=== PATIENT | male | born 1995 | race American Indian/Alaskan Native ===

== ENCOUNTER 2017-11-11 20:00 | Emergency (ER) | payer BC, MEDICAID ==
[2017-11-11 20:21] VITALS: BP 148/77
[2017-11-11] MEDS ORDERED: MOTRIN PO ONE (20:25)
--- NOTE | 2017-11-11 21:41 | XRay Report ---
FINAL REPORT PROCEDURE: XR KNEE 3V RT TECHNIQUE: RIGHT knee radiographs, AP, lateral and oblique views. CPT 06653 HISTORY: Right knee pain COMPARISON: No prior studies are available for comparison. FINDINGS: Fracture (s) and/or Dislocation(s): None . Alignment: Normal . Joint space(s): Normal . Soft tissues: Normal . Bone mineralization: Normal . Foreign bodies: None . IMPRESSION: Normal Examination.
--- NOTE | 2017-11-11 22:26 | Emergency Department Report ---
ED Lower Extremity HPI - General Chief Complaint: Extremity Injury, Lower Stated Complaint: RT LEG PAIN Time Seen by Provider: 11/11/17 22:03 Source: patient Mode of arrival: Ambulatory Limitations: No Limitations - History of Present Illness Initial Comments: This is a 22-year-old male nontoxic, well nourished in appearance, no acute signs of distress presents to the ED with c/o of right knee pain 1 day. Patient stated that he was playing basketball and twisted his knee. Patient denies any other trauma. Patient denies any numbness, tingling, fever, chills, nausea, vomiting, chest pain, shortness of breath, headache, stiff neck. Patient denies any joint swelling or joint redness. Patient denies decreased range of motion. Patient stated has decreased gait due to pain. Patient denies any allergies or significant past medical history. MD Complaint: knee injury -: days(s) (1) Place: street/outdoors Severity: mild Severity scale (0 -10): 8 Improves With: immobilization Worsens With: movement, palpation Associated Symptoms: swelling, able to partially bear weight, ambulatory. denies: snap/pop sensation, numbness, tingling, unable to bear weight - Related Data Previous Rx's Medication Instructions Recorded Last Taken Type Amoxicillin [Trimox CAP] 500 mg PO Q8H #30 capsule 03/22/13 Unknown Rx Ibuprofen [Motrin] 800 mg PO TID PRN #15 tablet 03/22/13 Unknown Rx Ibuprofen [Motrin] 800 mg PO Q8H PRN #60 tablet 10/09/14 Unknown Rx traMADol [Ultram] 50 mg PO Q6HR PRN #20 tablet 10/09/14 Unknown Rx Amoxicillin [Trimox CAP] 500 mg PO Q8H #30 capsule 01/21/15 Unknown Rx Ibuprofen [Motrin] 600 mg PO Q8H PRN #30 tablet 11/11/17 Unknown Rx Allergies Allergy/AdvReac Type Severity Reaction Status Date / Time No Known Allergies Allergy Verified 03/22/13 18:25 ED Review of Systems ROS: Stated complaint: RT LEG PAIN Other details as noted in HPI Constitutional: denies: chills, fever Eyes: denies: eye pain, eye discharge, vision change ENT: denies: ear pain, throat pain Respiratory: denies: cough, shortness of breath, wheezing Cardiovascular: denies: chest pain, palpitations Endocrine: no symptoms reported Gastrointestinal: denies: abdominal pain, nausea, diarrhea Genitourinary: denies: urgency, dysuria Musculoskeletal: denies: back pain, joint swelling, arthralgia Skin: denies: rash, lesions Neurological: denies: headache, weakness, paresthesias Psychiatric: denies: anxiety, depression Hematological/Lymphatic: denies: easy bleeding, easy bruising ED Past Medical Hx - Past Medical History Additional medical history: Oral herpes - Surgical History Past Surgical History?: No - Social History Smoking Status: Never Smoker Substance Use Type: None - Medications Home Medications: Home Medications Medication Instructions Recorded Confirmed Last Taken Type Amoxicillin [Trimox CAP] 500 mg PO Q8H #30 capsule 03/22/13 Unknown Rx Ibuprofen [Motrin] 800 mg PO TID PRN #15 tablet 03/22/13 Unknown Rx Ibuprofen [Motrin] 800 mg PO Q8H PRN #60 tablet 10/09/14 Unknown Rx traMADol [Ultram] 50 mg PO Q6HR PRN #20 tablet 10/09/14 Unknown Rx Amoxicillin [Trimox CAP] 500 mg PO Q8H #30 capsule 01/21/15 Unknown Rx Ibuprofen [Motrin] 600 mg PO Q8H PRN #30 tablet 11/11/17 Unknown Rx ED Physical Exam - General Limitations: No Limitations General appearance: alert, in no apparent distress - Head Head exam: Present: atraumatic, normocephalic - Eye Eye exam: Present: normal appearance - ENT ENT exam: Present: mucous membranes moist - Neck Neck exam: Present: normal inspection - Respiratory Respiratory exam: Present: normal lung sounds bilaterally. Absent: respiratory distress - Cardiovascular Cardiovascular Exam: Present: regular rate, normal rhythm. Absent: systolic murmur, diastolic murmur, rubs, gallop - GI/Abdominal GI/Abdominal exam: Present: soft, normal bowel sounds - Rectal Rectal exam: Present: deferred - Extremities Exam Extremities exam: Present: normal inspection, full ROM, tenderness, normal capillary refill. Absent: joint swelling - Expanded Lower Extremity Exam Right Hip exam: Present: normal inspection, full ROM. Absent: tenderness, swelling Upper Leg exam: Present: normal inspection, full ROM. Absent: tenderness, swelling Knee exam: Present: normal inspection, full ROM, tenderness, swelling, full knee extension. Absent: abrasion, laceration, ecchymosis, deformity, crepidus, dislocation, erythema, effusion, pain w/ pronation/supination, posterior draw sign, pain/laxity with valgus, pain/laxity with varus Lower Leg exam: Present: normal inspection, full ROM. Absent: tenderness, swelling Ankle exam: Present: normal inspection, full ROM. Absent: tenderness, swelling Foot/Toe exam: Present: normal inspection, full ROM. Absent: tenderness, swelling Neuro vascular tendon exam: Present: no vascular compromise. Absent: pulse deficit, abnormal cap refill, motor deficit, sensory deficit, tendon deficit, extremity cold to touch, pallor, abnormal 2-point discrimination, decreased fine /light touch, foot drop, peroneal nerve deficit, significant pain with passive ROM of distal joint Gait: Positive: observed and limited by pain - Back Exam Back exam: Present: normal inspection, full ROM - Neurological Exam Neurological exam: Present: alert, oriented X3, normal gait - Psychiatric Psychiatric exam: Present: normal affect, normal mood - Skin Skin exam: Present: warm, dry, intact, normal color. Absent: rash ED Course Vital Signs 11/11/17 11/11/17 20:02 20:19 Temperature 98.2 F 98.2 F Pulse Rate 67 67 Respiratory 16 16 Rate Blood Pressure 148/77 148/77 O2 Sat by Pulse 98 100 Oximetry - Reevaluation(s) Reevaluation #1: 11/11/17 22:28 Patient is speaking in full sentences with no signs of distress noted. ED Lower Extremity MDM - Medical Decision Making This is a 22-year-old male that presents with left knee strain. Patient is stable and was examined by me. I referred patient to an orthopedic doctor for further evaluation for possible MRI. X-ray has been obtained and dictated by the radiologist. Patient is notified of the x-ray report with noted by the patient. Patient does have normal gait with no tenderness and no joint swelling. No ecchymosis. no joint redness or swelling. Not warm to touch. No signs of cellulites present. Patient received a knee immobilize. Patient was instructed to RICE therapy. Patient received Motrin for pain. Patient is discharged with Motrin. At time of discharge, the patient does not seem toxic or ill in appearance. No acute signs of distress noted. Patient agrees to discharge treatment plan of care. No further questions noted by the patient. Critical care attestation.: If time is entered above; I have spent that time in minutes in the direct care of this critically ill patient, excluding procedure time. ED Disposition Clinical Impression: Strain of right knee Qualifiers: Encounter type: initial encounter Qualified Code(s): S86.911A - Strain of unspecified muscle(s) and tendon(s) at lower leg level, right leg, initial encounter Disposition: TO HOME OR SELFCARE Is pt being admited?: No Does the pt Need Aspirin: No Condition: Stable Instructions: Knee Pain (ED), Knee Immobilizer (ED), RICE Therapy (ED) Additional Instructions: Follow-up with a orthopedic doctor in 3-5 days or if symptoms worsen and continue return to emergency room as soon as possible. Prescriptions: Ibuprofen [Motrin] 600 mg PO Q8H PRN #30 tablet PRN Reason: Pain Referrals: PRIMARY CAREMD [Primary Care Provider] - 3-5 Days PARAM HWANG MD [Staff Physician] - 3-5 Days [facility] [Outside] - 3-5 Days [facility] [Outside] - 3-5 Days Forms: Work/School Release Form(ED)
== END 2017-11-11 23:00 | disposition home or self-care (01) ==
LOC: ED 20:00
DX: S86.911A Strain of unspecified muscle(s) and tendon(s) at lower leg level, right leg, initial encounter (principal); X50.1XXA Overexertion from prolonged static or awkward postures, initial encounter; Y93.67 Activity, basketball; Y92.488 Other paved roadways as the place of occurrence of the external cause; Y99.8 Other external cause status
CPT/HCPCS: 99283

== ENCOUNTER 2018-06-13 18:17 | Emergency (ER) | payer BC ==
--- NOTE | 2018-06-13 18:32 | Emergency Department Report ---
Chief Complaint: Extremity Injury, Lower Stated Complaint: LFT FT PAIN Time Seen by Provider: 06/13/18 18:31 - HPI History of Present Illness: L FOOT PAIN- ON ARCH FOR 1.5 WEEKS NO TRAUMA NSAIDS NOT WORKING PMH NONE PSH NONE RX NONE MSE COMPLETED MSE screening note: Focused history and physical exam performed. Due to findings the following was ordered: ED Disposition for MSE Condition: Stable
--- NOTE | 2018-06-13 20:22 | XRay Report ---
FINAL REPORT EXAM: XR FOOT 2V LT HISTORY: L FOOT PAIN; NO KNOWN INJURY TECHNIQUE: Frontal and lateral views left foot Comparison: None FINDINGS: There is no evidence of fracture, subluxation, lytic or blastic change or periosteal reaction. The joint spaces are maintained. The soft tissues are unremarkable. IMPRESSION: 1. No plain film evidence of bony or soft tissue abnormality.
--- NOTE | 2018-06-14 00:06 | Emergency Department Report ---
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 plantar region past 3 days denies fall injury or trauma states he works tenderness she was standing and walks to and from work 1+ miles each way symptoms include pain with flexion to plantar foot described as burning aching 5/10 is no numbness and tingling in pain is exacerbated by prolonged standing and walking and is relieved by offloading rest patient has not taken [id number] NSAIDs for pain MD Complaint: foot injury Onset/Timin -: days(s) Injury: Foot: Left Type of Injury: hyperextension Place: home Severity: moderate Severity scale (0 -10): 5 Improves With: nothing (nothing tried ), rest Worsens With: weight bearing, movement, palpation Context: other ([place] ) Associated Symptoms: snap/pop sensation, able to partially bear weight - Related Data Previous Rx's Medication Instructions Recorded Last Taken Type Amoxicillin [Trimox CAP] 500 mg PO Q8H #30 capsule 03/22/13 Unknown Rx Ibuprofen [Motrin] 800 mg PO TID PRN #15 tablet 03/22/13 Unknown Rx Ibuprofen [Motrin] 800 mg PO Q8H PRN #60 tablet 10/09/14 Unknown Rx traMADol [Ultram] 50 mg PO Q6HR PRN #20 tablet 10/09/14 Unknown Rx Amoxicillin [Trimox CAP] 500 mg PO Q8H #30 capsule 01/21/15 Unknown Rx Ibuprofen [Motrin] 600 mg PO Q8H PRN #30 tablet 11/11/17 Unknown Rx Butalb/Acetamin/Caff 50-325-40 2 tab PO BID PRN #30 tablet 04/03/18 Unknown Rx [Fioricet] Cyclobenzaprine [Flexeril] 10 mg PO TID PRN #30 tablet 06/14/18 Unknown Rx Naproxen 500 mg PO BID PRN #30 tablet 06/14/18 Unknown Rx predniSONE [Deltasone] 40 mg PO QDAY 5 Days #10 tab 06/14/18 Unknown Rx Allergies Allergy/AdvReac Type Severity Reaction Status Date / Time No Known Allergies Allergy Verified 06/13/18 18:18 ED Review of Systems ROS: Stated complaint: LFT FT PAIN Other details as noted in HPI Constitutional: denies: chills, fever Eyes: denies: eye pain, eye discharge, vision change ENT: denies: ear pain, throat pain Respiratory: denies: cough, shortness of breath, wheezing Cardiovascular: denies: chest pain, palpitations Endocrine: no symptoms reported Gastrointestinal: denies: abdominal pain, nausea, diarrhea Genitourinary: denies: urgency, dysuria Musculoskeletal: other (foot pain ) Skin: denies: rash, lesions Neurological: denies: headache, weakness, paresthesias Psychiatric: denies: anxiety, depression Hematological/Lymphatic: denies: easy bleeding, easy bruising ED Past Medical Hx - Past Medical History Previous Medical History?: No Additional medical history: Oral herpes - Surgical History Past Surgical History?: No - Social History Smoking Status: Never Smoker - Medications Home Medications: Home Medications Medication Instructions Recorded Confirmed Last Taken Type Amoxicillin [Trimox CAP] 500 mg PO Q8H #30 capsule 03/22/13 Unknown Rx Ibuprofen [Motrin] 800 mg PO TID PRN #15 tablet 03/22/13 Unknown Rx Ibuprofen [Motrin] 800 mg PO Q8H PRN #60 tablet 10/09/14 Unknown Rx traMADol [Ultram] 50 mg PO Q6HR PRN #20 tablet 10/09/14 Unknown Rx Amoxicillin [Trimox CAP] 500 mg PO Q8H #30 capsule 01/21/15 Unknown Rx Ibuprofen [Motrin] 600 mg PO Q8H PRN #30 tablet 11/11/17 Unknown Rx Butalb/Acetamin/Caff 50-325-40 2 tab PO BID PRN #30 tablet 04/03/18 Unknown Rx [Fioricet] Cyclobenzaprine [Flexeril] 10 mg PO TID PRN #30 tablet 06/14/18 Unknown Rx Naproxen 500 mg PO BID PRN #30 tablet 06/14/18 Unknown Rx predniSONE [Deltasone] 40 mg PO QDAY 5 Days #10 tab 06/14/18 Unknown Rx ED Physical Exam - General Limitations: No Limitations General appearance: alert, in no apparent distress - Head Head exam: Present: atraumatic, normocephalic - Eye Eye exam: Present: normal appearance, EOMI - ENT ENT exam: Present: mucous membranes moist - Neck Neck exam: Present: normal inspection, full ROM. Absent: tenderness - Respiratory Respiratory exam: Present: normal lung sounds bilaterally. Absent: respiratory distress, stridor, chest wall tenderness - Cardiovascular Cardiovascular Exam: Present: regular rate, normal rhythm, normal heart sounds. Absent: systolic murmur, diastolic murmur, rubs, gallop - GI/Abdominal GI/Abdominal exam: Present: soft, normal bowel sounds - Rectal Rectal exam: Present: deferred - Extremities Exam Extremities exam: Present: full ROM, tenderness (planta foot), normal capillary refill. 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 Absent: swelling, abrasion, laceration, ecchymosis, deformity, crepidus, dislocation, erythema, amputation, puncture wound, foreign body, tenderness at base of 5th metatarsal, nail avulsion, subungual hematoma Neuro vascular tendon exam: Absent: motor deficit, sensory deficit, tendon defi cit, foot drop Gait: Positive: observed and limited by pain - Back Exam Back exam: Present: normal inspection, full ROM. Absent: tenderness, CVA tenderness (R), CVA tenderness (L) - Neurological Exam Neurological exam: Present: alert, oriented X3, CN II-XII intact, normal gait, reflexes normal. Absent: motor sensory deficit - Psychiatric Psychiatric exam: Present: normal affect, normal mood - Skin Skin exam: Present: warm, dry, intact, normal color. Absent: rash ED Course Vital Signs 06/13/18 18:31 Temperature 97.8 F Pulse Rate 68 Respiratory 18 Rate Blood Pressure 153/71 O2 Sat by Pulse 98 Oximetry ED Lower Extremity MDM - Radiology Data Radiology results: report reviewed, image reviewed FINAL REPORT EXAM: XR FOOT 2V LT HISTORY: L FOOT PAIN; NO KNOWN INJURY TECHNIQUE: Frontal and lateral views left foot Comparison: None FINDINGS: There is no evidence of fracture, subluxation, lytic or blastic change or periosteal reaction. The joint spaces are maintained. The soft tissues are unremarkable. IMPRESSION: 1. No plain film evidence of bony or soft tissue abnormality. Transcribed By: ED Dictated By: MERLIN OLIVEIRA MD Electronically Authenticated By: MERLIN OLIVEIRA MD Signed Date/Time: 06/13/182021 DD/ 20 TD/TT: 06/13/182020 - Medical Decision Making this is mild plantar fasciatis, xray no fracutre no soft tissue abnormality pt is ambulatory, plan lita wrap, nsaids, short burst steriod, RICE therapy, foot exercises follow up with pcp in 2-3 days pt verbalized agreement and understanding of discharge plan. pt dc'd to home in stable condition at this time. Critical care attestation.: If time is entered above; I have spent that time in minutes in the direct care of this critically ill patient, excluding procedure time. ED Disposition Clinical Impression: Plantar fasciitis of left foot Disposition: DC-01 TO HOME OR SELFCARE Is pt being admited?: No Does the pt Need Aspirin: No Condition: Stable Instructions: Plantar Fasciitis (ED) Prescriptions: Cyclobenzaprine [Flexeril] 10 mg PO TID PRN #30 tablet PRN Reason: Muscle Spasm Naproxen 500 mg PO BID PRN #30 tablet PRN Reason: pain predniSONE [Deltasone] 40 mg PO QDAY 5 Days #10 tab Referrals: BETH REYES [Primary Care Provider] - 3-5 Days [facility] [Outside] - 3-5 Days Forms: Work/School Release Form(ED) Time of Disposition: 00:18
[2018-06-14 00:33] VITALS: BP 143/78
== END 2018-06-14 00:33 | disposition home or self-care (01) ==
LOC: ED 18:17
DX: M72.2 Plantar fascial fibromatosis (principal)
CPT/HCPCS: 99283

== ENCOUNTER 2018-12-30 21:33 | Emergency (ER) | payer SELFPAY ==
[2018-12-30 22:14] VITALS: BP 140/86
--- NOTE | 2018-12-30 22:14 | Event Note ---
ED Screening Note Date of service: 12/30/18 Time: 22:13 ED Screening Note: 23 y o male presents with right foot pinky pain after injury todayunsure of what hit toe This initial assessment/diagnostic orders/clinical plan/treatment(s) is/are subject to change based on patients health status, clinical progression and re- assessment by fellow clinical providers in the ED. Further treatment and workup at subsequent clinical providers discretion. Patient/guardian urged not to elope from the ED as their condition may be serious if not clinically assessed and managed. Initial orders include: xr r foot
== END 2018-12-31 02:30 | disposition left against medical advice (07) ==
LOC: ED 21:33
DX: M79.671 Pain in right foot (principal); Z53.21 Procedure and treatment not carried out due to patient leaving prior to being seen by health care provider

== ENCOUNTER 2019-05-28 22:57 | Emergency (ER) | payer SELFPAY ==
[2019-05-28 23:18] VITALS: BP 155/88
[2019-05-29] MEDS ORDERED: BENZONATATE 100 MG CAP PO ONE (03:24)
--- NOTE | 2019-05-29 03:25 | Emergency Department Report ---
ED General Adult HPI - General Chief complaint: Upper Respiratory Infection Stated complaint: COLD SX/CP Time Seen by Provider: 05/29/19 03:09 Source: patient Mode of arrival: Ambulatory Limitations: No Limitations - History of Present Illness Initial comments: 24-year-old -Iranian male patient without significant past medical history presents with complaints of cough, congestion, runny nose, sneezing, and chest pain x 5 days. Patient states he was seen at [facility] on Saturday and diagnosed with a viral respiratory infection. He states cough is nonproductive and denies any fever. Patient also denies any shortness of breath or hemoptysis. Patient states the chest pain occurs mainly with coughing and is worse on the right side. He states ibuprofen is not helping with his pain. He denies any history of asthma. He also states he was given a shot of Decadron at [facility] and his symptoms did not improve with this. He reports his symptoms have been worsening since their onset. -: Sudden Quality: stabbing, other (burning) Consistency: constant - Related Data Previous Rx's Medication Instructions Recorded Last Taken Type Amoxicillin [Trimox CAP] 500 mg PO Q8H #30 capsule 03/22/13 Unknown Rx Ibuprofen [Motrin] 800 mg PO TID PRN #15 tablet 03/22/13 Unknown Rx Ibuprofen [Motrin] 800 mg PO Q8H PRN #60 tablet 10/09/14 Unknown Rx traMADoL [Ultram] 50 mg PO Q6HR PRN #20 tablet 10/09/14 Unknown Rx Amoxicillin [Trimox CAP] 500 mg PO Q8H #30 capsule 01/21/15 Unknown Rx Ibuprofen [Motrin] 600 mg PO Q8H PRN #30 tablet 11/11/17 Unknown Rx Butalb/Acetamin/Caff 50-325-40 2 tab PO BID PRN #30 tablet 04/03/18 Unknown Rx [Fioricet 50-325-40] Cyclobenzaprine [Flexeril] 10 mg PO TID PRN #30 tablet 06/14/18 Unknown Rx Naproxen 500 mg PO BID PRN #30 tablet 06/14/18 Unknown Rx predniSONE [Deltasone] 40 mg PO QDAY 5 Days #10 tab 06/14/18 Unknown Rx Amoxicillin/Potassium Clav 1 each PO BID 10 Days #20 tablet 05/29/19 Unknown Rx [Augmentin 875-125 Tablet] Benzonatate 200 mg PO TID PRN #30 capsule 05/29/19 Unknown Rx Allergies Allergy/AdvReac Type Severity Reaction Status Date / Time No Known Allergies Allergy Verified 06/13/18 18:18 ED Review of Systems ROS: Stated complaint: COLD SX/CP Other details as noted in HPI Constitutional: malaise. denies: chills, fever ENT: congestion. denies: throat pain, epistaxis Respiratory: cough. denies: shortness of breath, SOB with exertion, SOB at rest Cardiovascular: chest pain. denies: palpitations, edema, syncope Endocrine: denies: excessive sweating Gastrointestinal: denies: abdominal pain, nausea, vomiting, diarrhea Musculoskeletal: denies: back pain Skin: denies: rash, lesions Neurological: denies: headache ED Past Medical Hx - Past Medical History Previous Medical History?: Yes Additional medical history: Oral herpes - Surgical History Past Surgical History?: No - Social History Smoking Status: Never Smoker Substance Use Type: None - Medications Home Medications: Home Medications Medication Instructions Recorded Confirmed Last Taken Type Amoxicillin [Trimox CAP] 500 mg PO Q8H #30 capsule 03/22/13 Unknown Rx Ibuprofen [Motrin] 800 mg PO TID PRN #15 tablet 03/22/13 Unknown Rx Ibuprofen [Motrin] 800 mg PO Q8H PRN #60 tablet 10/09/14 Unknown Rx traMADoL [Ultram] 50 mg PO Q6HR PRN #20 tablet 10/09/14 Unknown Rx Amoxicillin [Trimox CAP] 500 mg PO Q8H #30 capsule 01/21/15 Unknown Rx Ibuprofen [Motrin] 600 mg PO Q8H PRN #30 tablet 11/11/17 Unknown Rx Butalb/Acetamin/Caff 50-325-40 2 tab PO BID PRN #30 tablet 04/03/18 Unknown Rx [Fioricet 50-325-40] Cyclobenzaprine [Flexeril] 10 mg PO TID PRN #30 tablet 06/14/18 Unknown Rx Naproxen 500 mg PO BID PRN #30 tablet 06/14/18 Unknown Rx predniSONE [Deltasone] 40 mg PO QDAY 5 Days #10 tab 06/14/18 Unknown Rx Amoxicillin/Potassium Clav 1 each PO BID 10 Days #20 tablet 05/29/19 Unknown Rx [Augmentin 875-125 Tablet] Benzonatate 200 mg PO TID PRN #30 capsule 05/29/19 Unknown Rx ED Physical Exam - General Limitations: No Limitations General appearance: alert, in no apparent distress - Head Head exam: Present: atraumatic, normocephalic - Eye Eye exam: Present: normal appearance - ENT ENT exam: Present: mucous membranes moist - Neck Neck exam: Present: normal inspection - Respiratory Respiratory exam: Present: rhonchi, chest wall tenderness (right sided). Absent: respiratory distress - Cardiovascular Cardiovascular Exam: Present: regular rate, normal rhythm. Absent: systolic murmur, diastolic murmur, rubs, gallop - Extremities Exam Extremities exam: Present: normal inspection - Back Exam Back exam: Present: normal inspection - Neurological Exam Neurological exam: Present: alert, oriented X3 - Psychiatric Psychiatric exam: Present: normal affect, normal mood - Skin Skin exam: Present: warm, dry, intact, normal color. Absent: rash ED Course Vital Signs 05/28/19 23:17 Temperature 98.9 F Pulse Rate 69 Respiratory 22 Rate Blood Pressure 155/88 O2 Sat by Pulse 98 Oximetry ED Medical Decision Making - Radiology Data Radiology results: report reviewed CHEST 2 VIEWS INDICATION / CLINICAL INFORMATION: cough, right sided chest pain. COMPARISON: None available. FINDINGS: SUPPORT DEVICES: None. HEART / MEDIASTINUM: No significant abnormality. LUNGS / PLEURA: No significant pulmonary or pleural abnormality. .No pneumothorax. ADDITIONAL FINDINGS: No significant additional findings. IMPRESSION: 1. No acute findings. - Medical Decision Making 24-year-old -Iranian male patient without significant past medical history presents with complaints of cough, congestion, runny nose, sneezing, and chest pain x 3 days. Patient is afebrile and nontoxic tachycardic. Chest x-ray is negative for acute findings. Mild rhonchi noted on exam. Patient is nontoxic appearing and stable for discharge home. Will treat for lower respiratory tract infection. Recommend follow-up with primary care provider within 3-5 days. Discussed very strict return precautions in detail with patient verbalizes understanding. Critical care attestation.: If time is entered above; I have spent that time in minutes in the direct care of this critically ill patient, excluding procedure time. ED Disposition Clinical Impression: Lower resp. tract infection Disposition: - TO HOME OR SELFCARE Is pt being admited?: No Condition: Stable Instructions: Acute Bronchitis (ED) Prescriptions: Amoxicillin/Potassium Clav [Augmentin 875-125 Tablet] 1 each PO BID 10 Days #20 tablet Benzonatate 200 mg PO TID PRN #30 capsule PRN Reason: Cough Referrals: PRIMARY CARE,MD [Primary Care Provider] - 3-5 Days
--- NOTE | 2019-05-29 03:51 | XRay Report ---
CHEST 2 VIEWS INDICATION / CLINICAL INFORMATION: cough, right sided chest pain. COMPARISON: None available. FINDINGS: SUPPORT DEVICES: None. HEART / MEDIASTINUM: No significant abnormality. LUNGS / PLEURA: No significant pulmonary or pleural abnormality. .No pneumothorax. ADDITIONAL FINDINGS: No significant additional findings. IMPRESSION: 1. No acute findings. Signer Name: Jose Ramon Pearson MD Signed: 05/29/2019 3:47 AM Workstation Name: [id number]
== END 2019-05-29 04:58 | disposition home or self-care (01) ==
LOC: ED 22:57
DX: J22 Unspecified acute lower respiratory infection (principal); Z79.899 Other long term (current) drug therapy
CPT/HCPCS: 71046

== ENCOUNTER 2019-06-03 15:32 | Emergency (ER) | payer SELFPAY ==
[2019-06-03] MEDS ORDERED: IBUPROFEN 600 MG TAB PO ONE (16:38)
[2019-06-03 16:39] VITALS: BP 160/69
--- NOTE | 2019-06-03 16:41 | Emergency Department Report ---
Chief Complaint: Upper Respiratory Infection Stated Complaint: CHEST PAINS.LORI Time Seen by Provider: 06/03/19 16:40 - HPI History of Present Illness: 24 y/o male low risk by wells no pe dvt risk factors perc negative p/w cough chest wall pain reproducible xr chest ekg minor care Vital Signs 06/03/19 16:38 Temperature 98.2 F Pulse Rate 61 Respiratory 18 Rate Blood Pressure 160/69 O2 Sat by Pulse 98 Oximetry - Exam Vital Signs: Vital Signs 06/03/19 16:38 Temperature 98.2 F Pulse Rate 61 Respiratory 18 Rate Blood Pressure 160/69 O2 Sat by Pulse 98 Oximetry MSE screening note: Focused history and physical exam performed. Due to findings the following was ordered: ED Disposition for MSE Condition: Stable
--- NOTE | 2019-06-03 18:36 | XRay Report ---
CHEST 2 VIEWS INDICATION / CLINICAL INFORMATION: Cough and chest wall pain.. COMPARISON: 05/29/2019. FINDINGS: SUPPORT DEVICES: None. HEART / MEDIASTINUM: The heart size and pulmonary vasculature are normal. LUNGS / PLEURA: No significant pulmonary or pleural abnormality. No pneumothorax. ADDITIONAL FINDINGS: No osseous abnormality is identified. IMPRESSION: No acute abnormality or significant change. Signer Name: Taye Figueroa MD Signed: 06/03/2019 6:31 PM Workstation Name: [id number]
--- NOTE | 2019-06-03 21:29 | Emergency Department Report ---
- General Chief Complaint: Upper Respiratory Infection Stated Complaint: CHEST PAINS.LORI Time Seen by Provider: 06/03/19 16:40 Source: patient Mode of arrival: Ambulatory Limitations: No Limitations - History of Present Illness Initial Comments: Pt is a 24 y/o male who presents for cough persistent x 1 month, hx of bronchitis , tx'd for same one month ago, pt is low risk by wells no pe dvt risk factors perc negative p/w, cough, chest wall pain, reproducible. symptoms rated at 5/10, symptoms relieved by albuterol inhaler, symptoms exacerbated by activity. MD Complaint: cough, sore throat, rhinorrhea, nasal congestion Onset/Timin -: month(s) Severity: moderate Severity scale (0 -10): 5 Quality: aching Consistency: intermittent Improves With: other (albuterol ) Worsens With: activity Context: sick contacts Associated Symptoms: rhinorrhea, nasal congestion, sore throat, cough, chest pain, ear pain. denies: fever, abdominal pain, nausea, vomiting, diarrhea, dysuria, rash, confusion, epistaxis Treatments Prior to Arrival: other (albuterol ) - Related Data Previous Rx's Medication Instructions Recorded Last Taken Type Amoxicillin [Trimox CAP] 500 mg PO Q8H #30 capsule 03/22/13 Unknown Rx Ibuprofen [Motrin] 800 mg PO TID PRN #15 tablet 03/22/13 Unknown Rx Ibuprofen [Motrin] 800 mg PO Q8H PRN #60 tablet 10/09/14 Unknown Rx traMADoL [Ultram] 50 mg PO Q6HR PRN #20 tablet 10/09/14 Unknown Rx Amoxicillin [Trimox CAP] 500 mg PO Q8H #30 capsule 01/21/15 Unknown Rx Ibuprofen [Motrin] 600 mg PO Q8H PRN #30 tablet 11/11/17 Unknown Rx Butalb/Acetamin/Caff 50-325-40 2 tab PO BID PRN #30 tablet 04/03/18 Unknown Rx [Fioricet 50-325-40] Cyclobenzaprine [Flexeril] 10 mg PO TID PRN #30 tablet 06/14/18 Unknown Rx Naproxen 500 mg PO BID PRN #30 tablet 06/14/18 Unknown Rx predniSONE [Deltasone] 40 mg PO QDAY 5 Days #10 tab 06/14/18 Unknown Rx Amoxicillin/Potassium Clav 1 each PO BID 10 Days #20 tablet 05/29/19 Unknown Rx [Augmentin 875-125 Tablet] Benzonatate 200 mg PO TID PRN #30 capsule 05/29/19 Unknown Rx Prednisone [predniSONE 5 mg (6-Day 5 mg PO .TAPER #1 tab.ds.pk 05/29/19 Unknown Rx Pack, 21 Tabs)] Albuterol INH(or & Nicu Only) 2 puff IH QID PRN #8.5 gram 06/03/19 Unknown Rx [ProAir HFA Inhaler] Guaifenesin/Pseudoephedrne HCl 1 each PO BID PRN #20 tab.er.12h 06/03/19 Unknown Rx [Mucinex D ER 1,200-120 mg Tab] Ibuprofen [Motrin 800 MG tab] 800 mg PO Q8HR PRN #30 tablet 06/03/19 Unknown Rx predniSONE [Deltasone] 40 mg PO QDAY #10 tab 06/03/19 Unknown Rx Allergies Allergy/AdvReac Type Severity Reaction Status Date / Time No Known Allergies Allergy Verified 06/13/18 18:18 ED Review of Systems ROS: Stated complaint: CHEST PAINS.LORI Other details as noted in HPI Constitutional: denies: chills, fever Eyes: denies: eye pain, eye discharge, vision change ENT: ear pain, throat pain, congestion. denies: dental pain Respiratory: cough. denies: shortness of breath, wheezing Cardiovascular: denies: chest pain, palpitations Endocrine: no symptoms reported Gastrointestinal: denies: abdominal pain, nausea, diarrhea Genitourinary: denies: urgency, dysuria Musculoskeletal: denies: back pain, joint swelling, arthralgia Skin: denies: rash, lesions Neurological: denies: headache, weakness, paresthesias Psychiatric: denies: anxiety, depression Hematological/Lymphatic: denies: easy bleeding, easy bruising ED Past Medical Hx - Past Medical History Previous Medical History?: Yes Additional medical history: Oral herpes - Surgical History Past Surgical History?: No - Social History Smoking Status: Never Smoker Substance Use Type: None - Medications Home Medications: Home Medications Medication Instructions Recorded Confirmed Last Taken Type Amoxicillin [Trimox CAP] 500 mg PO Q8H #30 capsule 03/22/13 Unknown Rx Ibuprofen [Motrin] 800 mg PO TID PRN #15 tablet 03/22/13 Unknown Rx Ibuprofen [Motrin] 800 mg PO Q8H PRN #60 tablet 10/09/14 Unknown Rx traMADoL [Ultram] 50 mg PO Q6HR PRN #20 tablet 10/09/14 Unknown Rx Amoxicillin [Trimox CAP] 500 mg PO Q8H #30 capsule 01/21/15 Unknown Rx Ibuprofen [Motrin] 600 mg PO Q8H PRN #30 tablet 11/11/17 Unknown Rx Butalb/Acetamin/Caff 50-325-40 2 tab PO BID PRN #30 tablet 04/03/18 Unknown Rx [Fioricet 50-325-40] Cyclobenzaprine [Flexeril] 10 mg PO TID PRN #30 tablet 06/14/18 Unknown Rx Naproxen 500 mg PO BID PRN #30 tablet 06/14/18 Unknown Rx predniSONE [Deltasone] 40 mg PO QDAY 5 Days #10 tab 06/14/18 Unknown Rx Amoxicillin/Potassium Clav 1 each PO BID 10 Days #20 tablet 05/29/19 Unknown Rx [Augmentin 875-125 Tablet] Benzonatate 200 mg PO TID PRN #30 capsule 05/29/19 Unknown Rx Prednisone [predniSONE 5 mg (6-Day 5 mg PO .TAPER #1 tab.ds.pk 05/29/19 Unknown Rx Pack, 21 Tabs)] Albuterol INH(or & Nicu Only) 2 puff IH QID PRN #8.5 gram 06/03/19 Unknown Rx [ProAir HFA Inhaler] Guaifenesin/Pseudoephedrne HCl 1 each PO BID PRN #20 tab.er.12h 06/03/19 Unknown Rx [Mucinex D ER 1,200-120 mg Tab] Ibuprofen [Motrin 800 MG tab] 800 mg PO Q8HR PRN #30 tablet 06/03/19 Unknown Rx predniSONE [Deltasone] 40 mg PO QDAY #10 tab 06/03/19 Unknown Rx ED Physical Exam - General Limitations: No Limitations General appearance: alert, in no apparent distress - Head Head exam: Present: atraumatic, normocephalic - Eye Eye exam: Present: PERRL, EOMI Pupils: Present: normal accommodation - ENT ENT exam: Present: mucous membranes moist, TM's normal bilaterally, normal external ear exam - Expanded ENT Exam Expanded Throat exam: Positive: tonsillar erythema, tonsillomegaly, tonsillar exudate, other (uvula midline no stridor, yellow clear post nasal drip ). Negative: R peritonsillar mass, L peritonsillar mass - Neck Neck exam: Present: normal inspection, full ROM. Absent: tenderness, lymphadenopathy, thyromegaly - Respiratory Respiratory exam: Present: normal lung sounds bilaterally, chest wall tenderness (right lateral anterior chest wall ). Absent: respiratory distress, wheezes, stridor - Cardiovascular Cardiovascular Exam: Present: regular rate, normal rhythm, normal heart sounds. Absent: systolic murmur, diastolic murmur, rubs, gallop - GI/Abdominal GI/Abdominal exam: Present: soft, normal bowel sounds. Absent: tenderness - Rectal Rectal exam: Present: deferred - Extremities Exam Extremities exam: Present: normal inspection - Back Exam Back exam: Present: normal inspection, full ROM. Absent: tenderness, CVA tenderness (R), CVA tenderness (L) - Neurological Exam Neurological exam: Present: alert, oriented X3, CN II-XII intact, normal gait - Psychiatric Psychiatric exam: Present: normal affect, normal mood - Skin Skin exam: Present: warm, dry, intact, normal color. Absent: rash ED Course Vital Signs 06/03/19 16:38 Temperature 98.2 F Pulse Rate 61 Respiratory 18 Rate Blood Pressure 160/69 O2 Sat by Pulse 98 Oximetry ED Medical Decision Making - Radiology Data Radiology results: report reviewed, image reviewed CHEST 2 VIEWS INDICATION / CLINICAL INFORMATION: Cough and chest wall pain.. COMPARISON: 05/29/2019. FINDINGS: SUPPORT DEVICES: None. HEART / MEDIASTINUM: The heart size and pulmonary vasculature are normal. LUNGS / PLEURA: No significant pulmonary or pleural abnormality. No pneumothorax. ADDITIONAL FINDINGS: No osseous abnormality is identified. IMPRESSION: No acute abnormality or significant change. Signer Name: Taye Figueroa MD Signed: 06/03/2019 6:31 PM Workstation Name: [id number] Transcribed By: RT Dictated By: Taye Figueroa MD Electronically Authenticated By: Taye Figueroa MD Signed Date/Time: 06/03/191830 DD/ 29 TD/TT: - Medical Decision Making This is bronchitis, with bacterial phraryngitis. plan: albuterol , predisone, mucinex, follow up with pcp in 2-3 days. Critical care attestation.: If time is entered above; I have spent that time in minutes in the direct care of this critically ill patient, excluding procedure time. ED Disposition Clinical Impression: Bronchitis Pharyngitis Qualifiers: Pharyngitis/tonsillitis etiology: unspecified etiology Qualified Code(s): J02.9 - Acute pharyngitis, unspecified Disposition: TO HOME OR SELFCARE Is pt being admited?: No Does the pt Need Aspirin: No Condition: Stable Instructions: Acute Bronchitis (ED) Prescriptions: predniSONE [Deltasone] 40 mg PO QDAY #10 tab Ibuprofen [Motrin 800 MG tab] 800 mg PO Q8HR PRN #30 tablet PRN Reason: pain fever Guaifenesin/Pseudoephedrne HCl [Mucinex D ER 1,200-120 mg Tab] 1 each PO BID PRN #20 tab.er.12h PRN Reason: cough congestion Albuterol INH(or & Nicu Only) [ProAir HFA Inhaler] 2 puff IH QID PRN #8.5 gram PRN Reason: Shortness Of Breath Referrals: RUTH ANN PALMER MD [Staff Physician] - 3-5 Days Forms: Work/School Release Form(ED) Time of Disposition: 21:39
== END 2019-06-03 21:34 | disposition home or self-care (01) ==
LOC: ED 15:32
DX: J40 Bronchitis, not specified as acute or chronic (principal); Z79.899 Other long term (current) drug therapy
CPT/HCPCS: 71046; 93005; 93010

== ENCOUNTER 2021-08-10 19:03 | Emergency (ER) | payer BC ==
[2021-08-10 19:54] VITALS: BP 150/80
--- NOTE | 2021-08-10 20:25 | XRay Report ---
CHEST 2 VIEWS INDICATION / CLINICAL INFORMATION: CHEST PAIN. COMPARISON: 2 views of the chest from 06/03/2019. FINDINGS: SUPPORT DEVICES: None. HEART / MEDIASTINUM: No significant abnormality. LUNGS / PLEURA: No significant pulmonary abnormality. No significant pleural effusion. No pneumothora x. ADDITIONAL FINDINGS: No significant additional findings. IMPRESSION: 1. No acute abnormality of the chest. Signer Name: Eladio Arredondo MD Signed: 08/10/2021 8:20 PM Workstation Name: [id number]
--- NOTE | 2021-08-11 00:31 | Emergency Department Report ---
ED General Adult HPI - General Chief complaint: Chest Pain Stated complaint: CHEST PAIN Time Seen by Provider: 08/10/21 23:35 Source: patient Mode of arrival: Ambulatory Limitations: No Limitations - History of Present Illness Initial comments: Patient is 26 years old male with no significant past medical history. Patient presented to the ER complaining of chest pain, substernal, sharp with no radiation. Patient stated that he noticed several tender area on his chest when he touches it. He stated that he has been working out recently. Patient denies any shortness of breath, fever, chills, cough. No abdominal pain, nausea or vomiting. -: days(s) (3) Location: chest Quality: sharp Associated Symptoms: denies other symptoms, chest pain - Related Data Previous Rx's Medication Instructions Recorded Last Taken Type Amoxicillin [Trimox CAP] 500 mg PO Q8H #30 capsule 03/22/13 Unknown Rx Ibuprofen [Motrin] 800 mg PO TID PRN #15 tablet 03/22/13 Unknown Rx Ibuprofen [Motrin] 800 mg PO Q8H PRN #60 tablet 10/09/14 Unknown Rx traMADoL [Ultram] 50 mg PO Q6HR PRN #20 tablet 10/09/14 Unknown Rx Amoxicillin [Trimox CAP] 500 mg PO Q8H #30 capsule 01/21/15 Unknown Rx Ibuprofen [Motrin] 600 mg PO Q8H PRN #30 tablet 11/11/17 Unknown Rx Butalb/Acetamin/Caff 50-325-40 2 tab PO BID PRN #30 tablet 04/03/18 Unknown Rx [Fioricet 50-325-40] Cyclobenzaprine [Flexeril] 10 mg PO TID PRN #30 tablet 06/14/18 Unknown Rx Naproxen 500 mg PO BID PRN #30 tablet 06/14/18 Unknown Rx predniSONE [Deltasone] 40 mg PO QDAY 5 Days #10 tab 06/14/18 Unknown Rx Amoxicillin/Potassium Clav 1 each PO BID 10 Days #20 tablet 05/29/19 Unknown Rx [Augmentin 875-125 Tablet] Benzonatate 200 mg PO TID PRN #30 capsule 05/29/19 Unknown Rx Prednisone [predniSONE 5 mg (6-Day 5 mg PO .TAPER #1 tab.ds.pk 05/29/19 Unknown Rx Pack, 21 Tabs)] Albuterol Mdi (or & Nicu Only) 2 puff IH QID PRN #8.5 gram 06/03/19 Unknown Rx [ProAir HFA Inhaler] Guaifenesin/Pseudoephedrne HCl 1 each PO BID PRN #20 tab.er.12h 06/03/19 Unknown Rx [Mucinex D ER 1,200-120 mg Tab] Ibuprofen [Motrin 800 MG tab] 800 mg PO Q8HR PRN #30 tablet 06/03/19 Unknown Rx predniSONE [Deltasone] 40 mg PO QDAY #10 tab 06/03/19 Unknown Rx Allergies Allergy/AdvReac Type Severity Reaction Status Date / Time No Known Allergies Allergy Verified 06/13/18 18:18 ED Review of Systems ROS: Stated complaint: CHEST PAIN Other details as noted in HPI Comment: All other systems reviewed and negative Constitutional: denies: chills, fever Respiratory: denies: cough, shortness of breath, SOB with exertion, SOB at rest Cardiovascular: chest pain Gastrointestinal: denies: abdominal pain, nausea, vomiting Musculoskeletal: denies: back pain Neurological: denies: headache, weakness, numbness, paresthesias, confusion ED Past Medical Hx - Past Medical History Additional medical history: Oral herpes - Social History Smoking Status: Never Smoker Substance Use Type: None - Medications Home Medications: Home Medications Medication Instructions Recorded Confirmed Last Taken Type Amoxicillin [Trimox CAP] 500 mg PO Q8H #30 capsule 03/22/13 Unknown Rx Ibuprofen [Motrin] 800 mg PO TID PRN #15 tablet 03/22/13 Unknown Rx Ibuprofen [Motrin] 800 mg PO Q8H PRN #60 tablet 10/09/14 Unknown Rx traMADoL [Ultram] 50 mg PO Q6HR PRN #20 tablet 10/09/14 Unknown Rx Amoxicillin [Trimox CAP] 500 mg PO Q8H #30 capsule 01/21/15 Unknown Rx Ibuprofen [Motrin] 600 mg PO Q8H PRN #30 tablet 11/11/17 Unknown Rx Butalb/Acetamin/Caff 50-325-40 2 tab PO BID PRN #30 tablet 04/03/18 Unknown Rx [Fioricet 50-325-40] Cyclobenzaprine [Flexeril] 10 mg PO TID PRN #30 tablet 06/14/18 Unknown Rx Naproxen 500 mg PO BID PRN #30 tablet 06/14/18 Unknown Rx predniSONE [Deltasone] 40 mg PO QDAY 5 Days #10 tab 06/14/18 Unknown Rx Amoxicillin/Potassium Clav 1 each PO BID 10 Days #20 tablet 05/29/19 Unknown Rx [Augmentin 875-125 Tablet] Benzonatate 200 mg PO TID PRN #30 capsule 05/29/19 Unknown Rx Prednisone [predniSONE 5 mg (6-Day 5 mg PO .TAPER #1 tab.ds.pk 05/29/19 Unknown Rx Pack, 21 Tabs)] Albuterol Mdi (or & Nicu Only) 2 puff IH QID PRN #8.5 gram 06/03/19 Unknown Rx [ProAir HFA Inhaler] Guaifenesin/Pseudoephedrne HCl 1 each PO BID PRN #20 tab.er.12h 06/03/19 Unknown Rx [Mucinex D ER 1,200-120 mg Tab] Ibuprofen [Motrin 800 MG tab] 800 mg PO Q8HR PRN #30 tablet 06/03/19 Unknown Rx predniSONE [Deltasone] 40 mg PO QDAY #10 tab 06/03/19 Unknown Rx ED Physical Exam - General Limitations: No Limitations General appearance: alert, in no apparent distress - Head Head exam: Present: atraumatic, normocephalic, normal inspection - Eye Eye exam: Present: normal appearance - ENT ENT exam: Present: normal exam, normal orophraynx, mucous membranes moist - Neck Neck exam: Present: normal inspection, full ROM. Absent: tenderness, meningismus - Respiratory Respiratory exam: Present: normal lung sounds bilaterally, chest wall tenderness - Cardiovascular Cardiovascular Exam: Present: bradycardia - GI/Abdominal GI/Abdominal exam: Present: soft, normal bowel sounds. Absent: distended, tenderness, guarding, rebound, rigid, organomegaly, mass, bruit, pulsatile mass, hernia - Extremities Exam Extremities exam: Present: normal inspection, full ROM, normal capillary refill. Absent: tenderness, pedal edema, joint swelling, calf tenderness - Back Exam Back exam: Present: normal inspection, full ROM. Absent: CVA tenderness (R), CVA tenderness (L) - Neurological Exam Neurological exam: Present: alert, oriented X3, CN II-XII intact, normal gait, reflexes normal. Absent: motor sensory deficit - Psychiatric Psychiatric exam: Present: normal mood - Skin Skin exam: Present: warm, intact, normal color ED Course Vital Signs 08/10/21 19:52 Temperature 98.6 F Pulse Rate 59 L Respiratory 18 Rate Blood Pressure 150/80 O2 Sat by Pulse 100 Oximetry ED Medical Decision Making - EKG Data -: EKG Interpreted by Me EKG shows normal: sinus rhythm Rate: normal - EKG Data Interpretation: no acute changes - Radiology Data Radiology results: report reviewed - Medical Decision Making Patient is 26 years old male with no significant past medical history. Patient presented to the ER complaining of chest pain, substernal, sharp with no radiation. Patient stated that he noticed several tender area on his chest when he touches it. He stated that he has been working out recently. Patient denies any shortness of breath, fever, chills, cough. No abdominal pain, nausea or vomiting. EKG is unremarkable. Chest x-ray is negative for acute finding. Patient chest pain is reproducible. Believe this is most likely costochondritis however patient strongly advised to follow-up with his primary care physician for outpatient cardiac work-up and to return to the ER if he develop any new symptoms. Critical care attestation.: If time is entered above; I have spent that time in minutes in the direct care of this critically ill patient, excluding procedure time. ED Disposition Clinical Impression: Atypical chest pain, Costochondritis, acute Disposition: 01 HOME / SELF CARE / HOMELESS Is pt being admited?: No Condition: Stable Instructions: Nonspecific Chest Pain, Adult, Costochondritis, [id number] Referrals: BETH REYES MD [Primary Care Provider] - 3-5 Days
--- NOTE | 2021-08-14 13:50 | Electrocardiograph Report ---
[facility] Test Date: 2021-08-10 Test Time: 19:10:34 Pat Name: XIN MCGILL Department: Room: Gender: M Engineering Specialist Technician: LIANNA : 1995 Requested By: JESUS LENTZ Order Number: [id number] Reading MD: Angelika Goins Measurements Intervals [place] Rate: 72 P: 20 MA: 182 QRS: 93 QRSD: 99 T: 15 QT: 346 QTc: 380 Interpretive Statements Sinus rhythm Rightward axis deviation No previous ECG available for comparison Electronically Signed On 08-14-2021 13:49:58 EDT by Angelika Goins
== END 2021-08-11 00:50 | disposition home or self-care (01) ==
LOC: ED 19:03
DX: M94.0 Chondrocostal junction syndrome [Tietze] (principal); Z79.899 Other long term (current) drug therapy
CPT/HCPCS: 71046; 93005; 99283

== ENCOUNTER 2021-12-08 01:39 | Emergency (ER) | payer BC ==
--- NOTE | 2021-12-08 02:34 | XRay Report ---
RIGHT KNEE 3 VIEW(S) INDICATION / CLINICAL INFORMATION: INJURY COMPARISON: 11/11/2017. FINDINGS: BONES / JOINT(S): No acute fracture or subluxation. No significant arthritis. No significant joint ef fusion. SOFT TISSUES: No significant abnormality. ADDITIONAL FINDINGS: None. IMPRESSION: No acute osseous findings in the right knee. Signer Name: Homer Page MD Signed: 12/08/2021 2:29 AM Workstation Name: [id number]
--- NOTE | 2021-12-08 08:38 | Emergency Department Report ---
ED Extremity Problem HPI - General Chief complaint: Extremity Injury, Lower Stated complaint: RIGHT KNEE PAIN Source: patient Mode of arrival: Ambulatory Limitations: No Limitations - History of Present Illness Initial comments: 27-year-old male presents to the ED complaining right knee pain. Patient states that he was ambulated and heard a pop in his right knee. Patient is able to bear weight patient has no obvious edema . Denies any trauma, no distracting injury noted. Denies any numbness or tingling. Patient is able to bear weight with pain. He states pain is a current 8 out of 10. -: Gradual, This morning Location: right History of Same: No Radiation: none Severity scale (0 -10): 8 Quality: stabbing Consistency: constant Improves with: nothing Worsens with: weight bearing Associated Symptoms: denies other symptoms - Related Data Previous Rx's Medication Instructions Recorded Last Taken Type Amoxicillin [Trimox CAP] 500 mg PO Q8H #30 capsule 03/22/13 Unknown Rx Ibuprofen [Motrin] 800 mg PO TID PRN #15 tablet 03/22/13 Unknown Rx Ibuprofen [Motrin] 800 mg PO Q8H PRN #60 tablet 10/09/14 Unknown Rx traMADoL [Ultram] 50 mg PO Q6HR PRN #20 tablet 10/09/14 Unknown Rx Amoxicillin [Trimox CAP] 500 mg PO Q8H #30 capsule 01/21/15 Unknown Rx Ibuprofen [Motrin] 600 mg PO Q8H PRN #30 tablet 11/11/17 Unknown Rx Butalb/Acetamin/Caff 50-325-40 2 tab PO BID PRN #30 tablet 04/03/18 Unknown Rx [Fioricet 50-325-40] Cyclobenzaprine [Flexeril] 10 mg PO TID PRN #30 tablet 06/14/18 Unknown Rx Naproxen 500 mg PO BID PRN #30 tablet 06/14/18 Unknown Rx predniSONE [Deltasone] 40 mg PO QDAY 5 Days #10 tab 06/14/18 Unknown Rx Amoxicillin/Potassium Clav 1 each PO BID 10 Days #20 tablet 05/29/19 Unknown Rx [Augmentin 875-125 Tablet] Benzonatate 200 mg PO TID PRN #30 capsule 05/29/19 Unknown Rx Prednisone [predniSONE 5 mg (6-Day 5 mg PO .TAPER #1 tab.ds.pk 05/29/19 Unknown Rx Pack, 21 Tabs)] Albuterol Mdi (or & Nicu Only) 2 puff IH QID PRN #8.5 gram 06/03/19 Unknown Rx [ProAir HFA Inhaler] Guaifenesin/Pseudoephedrne HCl 1 each PO BID PRN #20 tab.er.12h 06/03/19 Unknown Rx [Mucinex D ER 1,200-120 mg Tab] Ibuprofen [Motrin 800 MG tab] 800 mg PO Q8HR PRN #30 tablet 06/03/19 Unknown Rx predniSONE [Deltasone] 40 mg PO QDAY #10 tab 06/03/19 Unknown Rx Naproxen [Naprosyn] 500 mg PO BID #14 tablet 08/11/21 Unknown Rx Acetaminophen/Codeine [Tylenol 1 tab PO Q6H PRN 12 Days #12 tab 12/08/21 Unknown Rx /Codeine # 3 tab] Ibuprofen [Motrin] 800 mg PO Q8HR PRN 15 Days #30 12/08/21 Unknown Rx tablet Allergies Allergy/AdvReac Type Severity Reaction Status Date / Time No Known Allergies Allergy Verified 06/13/18 18:18 ED Review of Systems ROS: Stated complaint: RIGHT KNEE PAIN Other details as noted in HPI Constitutional: denies: chills, fever Eyes: denies: eye pain, eye discharge, vision change ENT: denies: ear pain, throat pain Respiratory: denies: cough, shortness of breath, wheezing Cardiovascular: denies: chest pain, palpitations Endocrine: no symptoms reported Gastrointestinal: denies: abdominal pain, nausea, diarrhea Genitourinary: denies: urgency, dysuria Musculoskeletal: denies: back pain, joint swelling, arthralgia Skin: denies: rash, lesions Neurological: denies: headache, weakness, paresthesias Psychiatric: denies: anxiety, depression Hematological/Lymphatic: denies: easy bleeding, easy bruising ED Past Medical Hx - Past Medical History Additional medical history: Oral herpes - Social History Smoking Status: Never Smoker Substance Use Type: None - Medications Home Medications: Home Medications Medication Instructions Recorded Confirmed Last Taken Type Amoxicillin [Trimox CAP] 500 mg PO Q8H #30 capsule 03/22/13 Unknown Rx Ibuprofen [Motrin] 800 mg PO TID PRN #15 tablet 03/22/13 Unknown Rx Ibuprofen [Motrin] 800 mg PO Q8H PRN #60 tablet 10/09/14 Unknown Rx traMADoL [Ultram] 50 mg PO Q6HR PRN #20 tablet 10/09/14 Unknown Rx Amoxicillin [Trimox CAP] 500 mg PO Q8H #30 capsule 01/21/15 Unknown Rx Ibuprofen [Motrin] 600 mg PO Q8H PRN #30 tablet 11/11/17 Unknown Rx Butalb/Acetamin/Caff 50-325-40 2 tab PO BID PRN #30 tablet 04/03/18 Unknown Rx [Fioricet 50-325-40] Cyclobenzaprine [Flexeril] 10 mg PO TID PRN #30 tablet 06/14/18 Unknown Rx Naproxen 500 mg PO BID PRN #30 tablet 06/14/18 Unknown Rx predniSONE [Deltasone] 40 mg PO QDAY 5 Days #10 tab 06/14/18 Unknown Rx Amoxicillin/Potassium Clav 1 each PO BID 10 Days #20 tablet 05/29/19 Unknown Rx [Augmentin 875-125 Tablet] Benzonatate 200 mg PO TID PRN #30 capsule 05/29/19 Unknown Rx Prednisone [predniSONE 5 mg (6-Day 5 mg PO .TAPER #1 tab.ds.pk 05/29/19 Unknown Rx Pack, 21 Tabs)] Albuterol Mdi (or & Nicu Only) 2 puff IH QID PRN #8.5 gram 06/03/19 Unknown Rx [ProAir HFA Inhaler] Guaifenesin/Pseudoephedrne HCl 1 each PO BID PRN #20 tab.er.12h 06/03/19 Unknown Rx [Mucinex D ER 1,200-120 mg Tab] Ibuprofen [Motrin 800 MG tab] 800 mg PO Q8HR PRN #30 tablet 06/03/19 Unknown Rx predniSONE [Deltasone] 40 mg PO QDAY #10 tab 06/03/19 Unknown Rx Naproxen [Naprosyn] 500 mg PO BID #14 tablet 08/11/21 Unknown Rx Acetaminophen/Codeine [Tylenol 1 tab PO Q6H PRN 12 Days #12 tab 12/08/21 Unknown Rx /Codeine # 3 tab] Ibuprofen [Motrin] 800 mg PO Q8HR PRN 15 Days #30 12/08/21 Unknown Rx tablet ED Physical Exam - General Limitations: No Limitations General appearance: alert, in no apparent distress - Head Head exam: Present: atraumatic, normocephalic - Eye Eye exam: Present: normal appearance - ENT ENT exam: Present: mucous membranes moist - Neck Neck exam: Present: normal inspection - Respiratory Respiratory exam: Present: normal lung sounds bilaterally. Absent: respiratory distress - Cardiovascular Cardiovascular Exam: Present: regular rate, normal rhythm. Absent: systolic murmur, diastolic murmur, rubs, gallop - GI/Abdominal GI/Abdominal exam: Present: soft, normal bowel sounds - Rectal Rectal exam: Present: deferred - Extremities Exam Extremities exam: Present: normal inspection - Back Exam Back exam: Present: normal inspection - Neurological Exam Neurological exam: Present: alert, oriented X3 - Psychiatric Psychiatric exam: Present: normal affect, normal mood - Skin Skin exam: Present: warm, dry, intact, normal color. Absent: rash ED Course Vital Signs 12/08/21 01:46 Temperature 98.2 F Pulse Rate 84 Respiratory 18 Rate Blood Pressure 149/102 O2 Sat by Pulse 99 Oximetry ED Medical Decision Making - Medical Decision Making 27-year-old male presents to the ED complaining right knee pain. Patient states that he was ambulated and heard a pop in his right knee. Patient is able to bear weight patient has no obvious edema . Denies any trauma, no distracting injury noted. Denies any numbness or tingling. Patient is able to bear weight with pain. He states pain is a current 8 out of 10. Critical care attestation.: If time is entered above; I have spent that time in minutes in the direct care of this critically ill patient, excluding procedure time. ED Disposition Clinical Impression: Right knee pain Qualifiers: Chronicity: acute Qualified Code(s): M25.561 - Pain in right knee Disposition: 01 HOME / SELF CARE / HOMELESS Is pt being admited?: No Does the pt Need Aspirin: No Condition: Stable Instructions: Acute Knee Pain, Adult, How to Use Cold Therapy, [id number] Additional Instructions: Take medication as prescribed Return to the ED for any worsening symptom Prescriptions: Ibuprofen [Motrin] 800 mg PO Q8HR PRN 15 Days #30 tablet PRN Reason: Pain, Mild (1-3) Acetaminophen/Codeine [Tylenol /Codeine # 3 tab] 1 tab PO Q6H PRN 12 Days #12 tab PRN Reason: Pain, Mild (1-3) Referrals: [facility] [Provider Group] - 3-5 Days Forms: Work/School Release Form(ED) Time of Disposition: 08:38
[2021-12-08 08:45] VITALS: BP 128/76
== END 2021-12-08 08:59 | disposition home or self-care (01) ==
LOC: ED 01:39
DX: M25.561 Pain in right knee (principal)
CPT/HCPCS: 99283